=== PATIENT | female | born 1965 | race Two or more races ===

== ENCOUNTER 2023-05-19 07:45 | Day surgery (SDC) | payer OTHER ==
[~2023-05-19] VITALS: Ht 157.5 cm; Wt 98.9 kg
[2023-05-19] MEDS: LIDOCAINE 2% 1000 MG/50 ML VIAL INJ ONE (09:04)
[2023-05-19] MEDS ORDERED: ACETAMINOPHEN EXTRA STRENGTH 500 MG TAB ONE (09:53)
[2023-05-19] MEDS: ACETAMINOPHEN EXTRA STRENGTH 500 MG TAB PO PRN (09:55)
[2023-05-19] MEDS: ACETAMINOPHEN 160 MG/5 ML UDC PO PRN (09:55)
== END 2023-05-19 10:32 | disposition home or self-care (01) ==
LOC: MDS 07:45 → MMU 07:46 → MDS 10:32
PROVIDERS: ATTEND Internal Medicine Gastroenterology
DX: K75.81 Nonalcoholic steatohepatitis (NASH) (principal); K21.9 Gastro-esophageal reflux disease without esophagitis; E78.00 Pure hypercholesterolemia, unspecified; E66.9 Obesity, unspecified; E11.9 Type 2 diabetes mellitus without complications; Z68.39 Body mass index [BMI] 39.0-39.9, adult; Z79.84 Long term (current) use of oral hypoglycemic drugs; Z79.899 Other long term (current) drug therapy
CPT/HCPCS: 47000; 76942; J2001; Q0092